=== PATIENT | female | born 1980 | race African-American/Black ===

== ENCOUNTER 2022-07-19 15:48 | Emergency (ER) | payer OTHER ==
[2022-07-19] MEDS ORDERED: Ibuprofen 200 MG TAB ONE (17:52)
== END 2022-07-19 18:45 | disposition home or self-care (01) ==
LOC: CSHERS 15:48
DX: M25.562 Pain in left knee (principal); E11.9 Type 2 diabetes mellitus without complications; Z87.891 Personal history of nicotine dependence